=== PATIENT | male | born 1950 | race Caucasian/White ===

== ENCOUNTER 2017-01-14 16:55 | Inpatient (IN) | payer MEDICAID ==
[~2017-01-14] VITALS: Ht 182.9 cm; Wt 84.4 kg
[2017-01-14] MEDS ORDERED: ONDANSETRON HCL/PF 4 MG/2 ML VIAL ONE (17:16)
[2017-01-14] MEDS ORDERED: HYDROMORPHONE 1 MG/1 ML DISP.SYRIN ONE (17:17)
[2017-01-14 17:19] LABS: BASOPHILS # (AUTO) 0.2 /CMM (0.0-0.2); BASOPHILS % (AUTO) 1.6 % (0.0-2.0); EOSINOPHILS % (AUTO) 0.2 % (0.0-6.0); HEMATOCRIT 46 % (39-51); HEMOGLOBIN 14.4 g/dL (13.5-17.5); LYMPHOCYTES # (AUTO) 0.7 /CMM (0.8-4.8); LYMPHOCYTES % (AUTO) 5.6 % (20.0-44.0); MEAN CORPUSCULAR HEMOGLOBIN 21 PG (26.0-33.0); MEAN CORPUSCULAR HGB CONC 31 g/dl (31.0-36.0); MEAN CORPUSCULAR VOLUME 67 fL (80-96); MONOCYTES # (AUTO) 0.4 /CMM (0.1-1.30); MONOCYTES % (AUTO) 3.2 % (2.0-12.0); NEUTROPHILS # (AUTO) 10.9 /CMM (1.8-8.9); NEUTROPHILS % (AUTO) 89.4 % (43.0-81.0); PLATELET COUNT (AUTO) 177 /CMM (150-450); RDW COEFFICIENT OF VARIATION 18.3 (11.5-15.0); RED BLOOD CELL COUNT(AUTO) 6.84 MIL/uL (4.5-6.0); WHITE BLOOD COUNT (AUTO) 12.2 K/uL (4.3-11.0)
--- NOTE | 2017-01-14 17:21 | NUR ---
PT REC'D TO ER C/O ABD PAIN 02/28 THIS IS THE 8TH TIME VSS . IV STARTED 20 G RT AC LABS SENT TO LAB
[2017-01-14] MEDS ORDERED: ONDANSETRON HCL/PF 4 MG/2 ML VIAL IVP ONE (17:30)
[2017-01-14] MEDS ORDERED: IV NS 0.9% 1,000 ML BAG IV ONE (17:30)
[2017-01-14] MEDS ORDERED: HYDROMORPHONE INJ 2 MG/ML DISP.SYRIN IV ONE (17:30)
--- NOTE | 2017-01-14 17:30 | NUR ---
PT SENT TO CT
[2017-01-14 17:32] LABS: CALCIUM, SERUM 9.2 mg/dL (8.5-10.1); CREATININE 1.1 mg/dL (0.6-1.3); POTASSIUM 4.4 mmol/L (3.5-5.1)
[2017-01-14 17:38] LABS: ALBUMIN 4.2 g/dL (3.4-5.0); BILIRUBIN,DIRECT 0.1 mg/dL (0.0-0.2); BILIRUBIN,TOTAL 0.8 mg/dL (0.2-1.0); TOTAL PROTEIN, SERUM 7.6 g/dL (6.4-8.2)
--- NOTE | 2017-01-14 17:50 | NUR ---
PT BACK FROM CT PAIN MED EFFECTIVE 07/01
[2017-01-14 18:10] LABS: BAND % (MANUAL) 5 % (0.0-5.0); LYMPHOCYTES % (MANUAL) 9 % (16-48); MONOCYTES % (MANUAL) 4 % (0-11.0); NEUTROPHILS % (MANUAL) 81 (42-76); REACTIVE LYMPHOCYTES 1 % (0-0)
[2017-01-14] MEDS ORDERED: ASPI81TA2 PO (18:25)
[2017-01-14] MEDS ORDERED: MULT-659 PO (18:25)
[2017-01-14] MEDS ORDERED: IV NS 0.9% 1,000 ML IV ONE (18:30)
--- NOTE | 2017-01-14 18:38 | NUR ---
PT GIVEN 2 ND BAG NS BOLUS PER MD DENIES PAIN AT THIS TIME
--- NOTE | 2017-01-14 18:53 | NUR ---
PATIENT WILL BE ADMITTED INTO ROOM 321-1.
--- NOTE | 2017-01-14 19:10 | NUR ---
GI MD AT BEDSIDE
--- NOTE | 2017-01-14 19:27 | NUR ---
REPORT CALLED TO M/S MISHA SCHERER.
[2017-01-14 19:30] VITALS: BP 156/84
[2017-01-14] MEDS ORDERED: HYDROCODONE/APAP 5/325MG 1 EACH TABLET PO PRN (19:30)
[2017-01-14] MEDS ORDERED: ONDANSETRON HCL/PF 4 MG/2 ML VIAL IVP PRN (19:30)
[2017-01-14] MEDS ORDERED: ACETAMINOPHEN 325 MG TABLET PO PRN (19:30)
[2017-01-14] MEDS ORDERED: ZOLPIDEM TARTRATE 5 MG TABLET PO PRN (19:30)
--- NOTE | 2017-01-14 19:30 | NUR ---
MS/RN OPENING NOTES RECEIVED PATIENT FROM ER, NEW ADMITTED PATIENT IS A 66 YO MALE, A/O X4 ABLE TO VERBALIZE NEEDS, AND CAN AMBULATE WITH SUPERVISION. SKIN INTACT, IV SITE ON RIGHT AC. PATIENT ADMITTED DUE TO COMPLAIN OF ABDOMINAL PAIN, FEVER, N/V. WILL CONTINUE TO MONITOR. LAST PAIN MEDICATION GIVEN AT ER.
[2017-01-14 20:00] VITALS: BP 156/84
[2017-01-14] MEDS: IV D5/ 0.9% NACL 1,000 ML IV PRN (20:28)
[2017-01-14] MEDS ORDERED: HYDROCODONE/APAP 5/325MG 1 EACH TABLET ONE (21:02)
[2017-01-14] MEDS ORDERED: FAMOTIDINE/PF INJ 20 MG/2 ML VIAL IV ONE (21:03)
[2017-01-14] MEDS: FAMOTIDINE/PF INJ 20 MG/2 ML VIAL IV SCH (21:06)
--- NOTE | 2017-01-14 21:06 | NUR ---
MS/RN NOTES PATIENT REPORTED PAIN IN ABDOMEN 5/10. NORCO 5-325 MG PO PRN .
--- NOTE | 2017-01-15 06:31 | NUR ---
ms/rn closing notes Patient awake, alert, oriented x4. able to verbalize needs. No s/s of discomfort. Respiration even and unlabored. Cooperative to care and participated w/ self care. will endorse to am rn regarding cash.
[2017-01-15 06:43] LABS: BASOPHILS % (AUTO) 0.2 % (0.0-2.0); EOSINOPHILS % (AUTO) 0.5 % (0.0-6.0); HEMATOCRIT 37 % (39-51); HEMOGLOBIN 11.8 g/dL (13.5-17.5); LYMPHOCYTES # (AUTO) 0.6 /CMM (0.8-4.8); LYMPHOCYTES % (AUTO) 9.9 % (20.0-44.0); MEAN CORPUSCULAR HEMOGLOBIN 22 PG (26.0-33.0); MEAN CORPUSCULAR HGB CONC 32 g/dl (31.0-36.0); MEAN CORPUSCULAR VOLUME 67 fL (80-96); MONOCYTES # (AUTO) 0.5 /CMM (0.1-1.30); MONOCYTES % (AUTO) 8.4 % (2.0-12.0); NEUTROPHILS # (AUTO) 4.6 /CMM (1.8-8.9); PLATELET COUNT (AUTO) 147 /CMM (150-450); RDW COEFFICIENT OF VARIATION 19.8 (11.5-15.0); RED BLOOD CELL COUNT(AUTO) 5.46 MIL/uL (4.5-6.0); WHITE BLOOD COUNT (AUTO) 5.7 K/uL (4.3-11.0)
--- NOTE | 2017-01-15 07:11 | NUR ---
M/RN OPENING NOTES RECEIVED PATIENT AWAKE IN BED IN NO ACUTE SIGNS OF DISTRESS. A/O X4 AND ABLE TO VOICED OUT NEEDS, NO C/O PAIN OR DISCOMFORTS AT THIS TIME. PT IS NPO AND AMBULATORY. IVF OF D5 NS @ 75ML/HR INFUSING WELL TO LEFT FA HAND G#22, NO SIGNS OF INFILTRATION NOTED. BED IN LOW POSITION AND LOCKED. CALL LIGHT WITHIN REACH. WILL MAINTAIN ALL SAFETY MEASURES AND WILL CONTINUE TO MONITOR PT ACCORDINGLY.
[2017-01-15 07:25] LABS: BAND % (MANUAL) 2 % (0.0-5.0); EOSINOPHILS % (MANUAL) 2 % (0-4); LYMPHOCYTES % (MANUAL) 9 % (16-48); MONOCYTES % (MANUAL) 8 % (0-11.0); NEUTROPHILS % (MANUAL) 79 (42-76)
[2017-01-15 07:33] LABS: CALCIUM, SERUM 7.7 mg/dL (8.5-10.1); CREATININE 0.8 mg/dL (0.6-1.3); MAGNESIUM 1.8 mg/dL (1.8-2.4); PHOSPHORUS 2.4 mg/dL (2.5-4.9); POTASSIUM 4.3 mmol/L (3.5-5.1)
[2017-01-15 08:00] VITALS: BP 134/78
[2017-01-15] MEDS ORDERED: MULTIVIT, IRON, MIN NO. 8, FA 1 TAB PO SCH (09:00)
[2017-01-15] MEDS ORDERED: ASPIRIN 81 MG TAB.CHEW PO SCH (09:00)
[2017-01-15] MEDS: FAMOTIDINE/PF INJ 20 MG/2 ML VIAL IV SCH ×2 (09:23→21:15)
[2017-01-15] MEDS ORDERED: MORPHINE SULFATE INJ 2 MG/ML DISP.SYRIN IV PRN (10:30)
[2017-01-15] MEDS ORDERED: IV NS 0.9% 250 ML IV ONE (10:59)
[2017-01-15] MEDS ORDERED: IOHEXOL-300 100 ML VIAL IV ONE (10:59)
[2017-01-15] MEDS ORDERED: CT SWABBABLE VALVE TRANS SET 1 EA INFUS.SET MC ONE (10:59)
[2017-01-15] MEDS: IV D5/ 0.9% NACL 1,000 ML IV PRN (14:53)
--- NOTE | 2017-01-15 14:54 | NUR ---
RN NOTES MD ORDER TO OBTAIN CONSENT FOR EXPLORATORY LAPAROTOMY, POSSIBLE RIGHT HEMICOLECTOMY, POSSIBLE COLOSTOMY BY DR GALAVIZ. EXPLAINED PROCEDURE TO PT BUT DIDN'T WANT TO SIGN CONSENT UNTIL HE SPEAKS TO DR GALAVIZ. CHARGE NURSE MADE AWARE AND SAID THAT DR GALAVIZ WILL COME LATER TODAY AND WILL TALK TO PT.
[2017-01-15] MEDS ORDERED: Sodium Phosphate 15 MMOL in IV D5W 250 ML IV ONE (15:30)
[2017-01-15 16:00] VITALS: BP 137/84
--- NOTE | 2017-01-15 18:54 | NUR ---
M/RN CLOSING NOTES PATIENT AWAKE IN BED WATCHING TV. A/O X4 AND ABLE TO VOICED OUT NEEDS WITH NO C/O PAIN THROUGHOUT THE DAY. STATED THAT HE HAD LBM SEVERAL TIMES TODAY IN SMALL AMOUNT AND INFORMED MD ABOUT IT. PT REMAINS NPO AND AMBULATORY. IVF OF D5 NS @ 75ML/HR INFUSING WELL TO LEFT FA HAND G#22, NO SIGNS OF INFILTRATION NOTED. BED IN LOW POSITION AND LOCKED. CALL LIGHT WITHIN REACH. ALL SAFETY MEASURES IN PLACE. ALL NEEDS AND CARE ATTENDED WELL. WILL ENDORSED TO [employer]REL RECONDITIONER NURSE FOR MATEO.
--- NOTE | 2017-01-15 19:30 | NUR ---
MS RN OPENING NOTES: PATIENT IN BED, AOX4, ON ROOM AIR, BREATHING EVEN AND UNLABORED. BREATH SOUNDS CLEAR TO AUSCULTATION. BOWEL SOUNDS HYPERACTIVE. APPEARS CALM AND IN NO DISTRESS. DENIES PAIN AT THIS TIME. STATES THAT HE WAS ABLE TO HAVE BM EARLIER TODAY, AND THAT IT WAS SOFT TO LIQUID IN CONSISTENCY. PIV OVER LFA G 22 INTACT NAD INFUSING WELL WITH D5 NS RUNNING AT 75 ML/HR. PROVIDED FOR COMFORT AND SAFETY. MAINTAINED ON NPO. WILL CONT TO MONITOR.
[2017-01-15 20:00] VITALS: BP 132/73
--- NOTE | 2017-01-15 21:15 | NUR ---
RN NOTES: PATIENT'S TEMP IS 99.7. DR NAVARRO WAS CALLED TO ASK IF TYLENOL SUPP CAN BE ORDERED PATIENT IS ON NPO, BUT PER MD, PATIENT IS NPO EXCEPT FOR MEDS. MD AWARE THAT PATIENT WILL POSSIBLY BE HAVING SURGERY WITH DR GALAVIZ TOMORROW, BUT THAT HE HAS NOT CONSENTED YET. DR NAVARRO REITERATED NPO EXCEPT FOR MEDS. NOTED AND CARRIED OUT. TYLENOL 650 MG PO GIVEN, AND COOLING MEASURES INITIATED.
--- NOTE | 2017-01-15 22:20 | NUR ---
RN NOTES: TEMP RECHECKED AT 99.4.
[2017-01-16] VITALS (11 sets, daily range): BP systolic 115–136; BP diastolic 64–86
[2017-01-16] MEDS: IV D5/ 0.9% NACL 1,000 ML IV PRN (05:07)
--- NOTE | 2017-01-16 07:16 | NUR ---
MS RN CLOSING NOTES: PATIENT IN BED, AOX4, ON ROOM AIR, BREATHING EVEN AND UNLABORED. PIV OVER LFA G 22 INTACT AND PATENT, INFUSING WELL WITH D5NS RUNNING AT 75 ML/HR. APPEARS CALM AND IN NO DISTRESS. DENIES PAIN. PATIENT IS NOW AFEBRILE, VSS. DUE MEDS GIVEN. PROVIDED FOR COMFORT AND SAFETY. MAINTAINED ON NPO EXCEPT MEDS. NO ACUTE CHANGE IN CONDITION NOTED THROUGH SHIFT. WILL ENDORSE TO AM RN FOR MATEO.
--- NOTE | 2017-01-16 07:30 | NUR ---
MS RN AM NOTES: PATIENT SITTING IN CHAIR, AOX4, ON ROOM AIR, BREATHING EVEN AND UNLABORED. DENIES ANY PAIN, LFA G 22 WITH D5NS AT 75 ML/HR INFUSING WELL, SITE CLEAR. AFEBRILE, NPO FOR SURGICAL PROCEDURE AT 1030 C/O DR. GALAVIZ. AMBULATORY, CALL LIGHT WITHIN REACH, BED LOW LOCKED, WILL CONT TO MONITOR. PER PATIENT HE WANTS TO TALK TO DR. GALAVIZ PRIOR TO SURGERY BEFORE HE SIGNS CONSENTS.
[2017-01-16 07:39] LABS: CALCIUM, SERUM 7.7 mg/dL (8.5-10.1); CREATININE 0.8 mg/dL (0.6-1.3); PHOSPHORUS 2.6 mg/dL (2.5-4.9); POTASSIUM 3.4 mmol/L (3.5-5.1)
[2017-01-16 07:41] LABS: BASOPHILS % (AUTO) 0.3 % (0.0-2.0); EOSINOPHILS # (AUTO) 0.1 /CMM (0.0-0.7); EOSINOPHILS % (AUTO) 2.3 % (0.0-6.0); HEMATOCRIT 35 % (39-51); HEMOGLOBIN 11.3 g/dL (13.5-17.5); INR 1.04 (0.87-1.13); LYMPHOCYTES # (AUTO) 0.8 /CMM (0.8-4.8); LYMPHOCYTES % (AUTO) 15.7 % (20.0-44.0); MEAN CORPUSCULAR HEMOGLOBIN 22 PG (26.0-33.0); MEAN CORPUSCULAR HGB CONC 32 g/dl (31.0-36.0); MEAN CORPUSCULAR VOLUME 68 fL (80-96); MONOCYTES # (AUTO) 0.5 /CMM (0.1-1.30); MONOCYTES % (AUTO) 9.1 % (2.0-12.0); NEUTROPHILS # (AUTO) 3.8 /CMM (1.8-8.9); NEUTROPHILS % (AUTO) 72.6 % (43.0-81.0); PLATELET COUNT (AUTO) 129 /CMM (150-450); PROTHROMBIN TIME 11.1 SECS (9.5-12.7); RED BLOOD CELL COUNT(AUTO) 5.17 MIL/uL (4.5-6.0); WHITE BLOOD COUNT (AUTO) 5.2 K/uL (4.3-11.0)
[2017-01-16 08:29] LABS: EOSINOPHILS % (MANUAL) 2 % (0-4); LYMPHOCYTES % (MANUAL) 14 % (16-48); MONOCYTES % (MANUAL) 4 % (0-11.0); NEUTROPHILS % (MANUAL) 80 (42-76)
[2017-01-16] MEDS: FAMOTIDINE/PF INJ 20 MG/2 ML VIAL IV SCH ×2 (08:56→21:35)
[2017-01-16] MEDS ORDERED: FENTANYL PF 100MCG/2ML AMPUL ONE (09:01)
[2017-01-16] MEDS ORDERED: ROCURONIUM BROMIDE 50 MG/5 ML ONE ×2 (09:02→10:52)
[2017-01-16] MEDS ORDERED: HYDROMORPHONE INJ 2 MG/ML DISP.SYRIN ONE (09:02)
[2017-01-16] MEDS ORDERED: SUCCINYLCHOLINE CHLORIDE 20 MG/ML VIAL ONE (09:02)
[2017-01-16] MEDS ORDERED: METRONIDAZOLE 500MG/ NS 100ML 100 ML IV ONE (09:14)
--- NOTE | 2017-01-16 09:20 | NUR ---
MS RN NOTE ADMINISTERED DUE MEDS. DR. GALAVIZ AT BEDSIDE EARLIER. CONSENTS FOR PROCEDURE SIGNED.
--- NOTE | 2017-01-16 09:25 | NUR ---
MS RN NOTES PATIENT PICKED UP FOR SCHEDULED SURGERY.
[2017-01-16] MEDS ORDERED: LEVOFLOXACIN 500 MG /D5W 100ML 500 MG in PREMIX 1 EA IV ONE (09:30)
[2017-01-16] MEDS ORDERED: LIDOCAINE 1% INJ 50 ML MDV IJ ONE (09:57)
[2017-01-16] MEDS ORDERED: BUPIVACAINE MPF 0.5% W/EPI INJ 30 ML VIAL ONE (09:57)
[2017-01-16] MEDS: POTASSIUM CL. PREMIX PERIPHER. 50 ML IV SCH ×2 (10:00→11:00)
--- NOTE | 2017-01-16 11:00 | NUR ---
MS RN NOTES POTASSIUM CHLORIDE IV X 2 BAGS NOT GIVEN, PATIENT IS IN SURGERY. SPOKE WITH FIGUEROA AT PHARMACY.
--- NOTE | 2017-01-16 11:50 | NUR ---
MS RN NOTES PATIENT BACK FROM SURGERY, SP/P EX LAP RT HEMICOLECTOMY MILENA TRANSVERSE COLOSTOMY BY DR. CHANTEL GALAVIZ, AAO X 4, ON RA, NOT IN ANY DISTRESS, ABDOMEN WITH CDI DRESSING, VSS TAKEN. STABLE. IVF INFUSING WELL. ALL POST OP ORDERS CARRIED OUT. WILL CONT TO MONITOR.
[2017-01-16] MEDS ORDERED: IV LR 1000 ML 1,000 ML IV PRN (13:00)
[2017-01-16] MEDS ORDERED: HYDROMORPHONE 1 MG/1 ML DISP.SYRIN IV PRN (13:00)
[2017-01-16] MEDS ORDERED: HYDROMORPHONE INJ 2 MG/ML DISP.SYRIN IV PRN (13:00)
[2017-01-16] MEDS: ACETAMINOPHEN 325 MG TABLET PO SCH ×2 (13:12→21:34)
[2017-01-16] MEDS: GABAPENTIN 300 MG CAPSULE PO SCH ×2 (13:12→21:35)
[2017-01-16] MEDS: IBUPROFEN 200 MG TABLET PO SCH ×2 (13:12→21:35)
[2017-01-16] MEDS: IV LR 1000 ML 1,000 ML IV PRN (18:01)
--- NOTE | 2017-01-16 18:45 | NUR ---
MS RN CLOSING NOTES: PATIENT RESTING IN BED, S/P EX LAP RT HEMICOLECTOMY MILENA TRANSVERSE COLOSTOMY BY DR. CHANTEL GALAVIZ, AAO X 4, ON 2L O2 NC, NOT IN ANY DISTRESS, ABDOMEN WITH CDI DRESSING, DENIES ANY PAIN, LFA G 22 FLUSHES WELL RT HAND G18 WITH LR AT 100 ML/HR INFUSING WELL, BOTH SITES CLEAR. AFEBRILE, CLEAR LIQUID DIET, INSTRUCTED TO SIT IN IN CHAIR THIS PM AND AMBULATE IN AM, INCENTIVE SPIROMETER AT BEDSIDE. CALL LIGHT WITHIN REACH, BED LOW LOCKED, ALL NEEDS MET. NO OTHER SIGNIFICANT CHANGE IN CONDITION. WILL ENDORSE TO NEXT SHIFT FOR MATEO.
--- NOTE | 2017-01-16 19:30 | NUR ---
MS/RN OPENING NOTES PT RECEIVED AWAKE, A/OX4. ON 2LPM O2 VIA NC, BREATHING EVEN AND UNLABORED. DENIES SOB. PAIN MEDICATION ALREADY ADMINISTERED AND PT NOTES PAIN TO ABDOMEN 07/29. WALL IN PLACE AND DRAINING WELL. SURGICAL DRESSING TO ABDOMEN C/D/I. IV TO RIGHT HAND RUNNING IVF ORDERED. IV TO LFA PATENT AND INTACT. INCENTIVE SPIROMETER AT BEDSIDE. ENCOURAGED TO USE Q2H AND TO COUGH AND DEEP BREATH WITH PILLOW TO ABDOMEN FOR REINFORCEMENT. BED IN LOW/LOCKED POSITION, CALL LIGHT IN REACH. SIDE RAILS UPX2. WILL CONTINUE TO MONITOR
--- NOTE | 2017-01-17 03:00 | NUR ---
MS/RN NOTES PT ASLEEP, BREATHING EVEN AND UNLABORED. NO S/S OF DISTRESS. WILL CONTINUE TO MONITOR
[2017-01-17] MEDS: IV LR 1000 ML 1,000 ML IV PRN (03:24)
[2017-01-17] MEDS: IBUPROFEN 200 MG TABLET PO SCH ×3 (05:53→20:34)
[2017-01-17] MEDS: ACETAMINOPHEN 325 MG TABLET PO SCH ×3 (05:53→20:34)
[2017-01-17] MEDS: GABAPENTIN 300 MG CAPSULE PO SCH ×3 (05:53→20:34)
[2017-01-17 06:30] LABS: BASOPHILS % (AUTO) 0.1 % (0.0-2.0); EOSINOPHILS % (AUTO) 0.7 % (0.0-6.0); HEMATOCRIT 31 % (39-51); HEMOGLOBIN 9.9 g/dL (13.5-17.5); LYMPHOCYTES # (AUTO) 0.8 /CMM (0.8-4.8); LYMPHOCYTES % (AUTO) 15.5 % (20.0-44.0); MEAN CORPUSCULAR HEMOGLOBIN 22 PG (26.0-33.0); MEAN CORPUSCULAR HGB CONC 33 g/dl (31.0-36.0); MEAN CORPUSCULAR VOLUME 68 fL (80-96); MONOCYTES # (AUTO) 0.5 /CMM (0.1-1.30); MONOCYTES % (AUTO) 9.2 % (2.0-12.0); NEUTROPHILS % (AUTO) 74.5 % (43.0-81.0); PLATELET COUNT (AUTO) 126 /CMM (150-450); RDW COEFFICIENT OF VARIATION 20.2 (11.5-15.0); RED BLOOD CELL COUNT(AUTO) 4.49 MIL/uL (4.5-6.0); WHITE BLOOD COUNT (AUTO) 5.3 K/uL (4.3-11.0)
[2017-01-17 06:45] LABS: CALCIUM, SERUM 7.7 mg/dL (8.5-10.1); CREATININE 0.7 mg/dL (0.6-1.3); POTASSIUM 3.7 mmol/L (3.5-5.1)
--- NOTE | 2017-01-17 07:35 | NUR ---
MS/RN CLOSING NOTES PT AWAKE, A/OX4, RESTING COMFORTABLY IN BED. CURRENTLY ON ROOM AIR, BREATHING EVEN AND UNLABORED, NO APPARENT DISTRESS NOTED. DENIES SOB. PT NOTES PAIN TO ABDOMEN 09/28, OFFERED PAIN MEDICATION BUT MAY WANT ALITTLE LATER. WALL IN PLACE AND DRAINING WELL. SURGICAL DRESSING TO ABDOMEN REMAINS C/D/I. IV TO RIGHT HAND RUNNING IVF ORDERED. IV TO LFA PATENT AND INTACT. PT MOTIVATED TO AMBULATE TODAY DURING SHIFT. BED IN LOW/LOCKED POSITION, CALL LIGHT IN REACH. SIDE RAILS UPX2. ENDORSED TO AM SHIFT MATEO.
[2017-01-17 07:59] LABS: BAND % (MANUAL) 3 % (0.0-5.0); EOSINOPHILS % (MANUAL) 1 % (0-4); LYMPHOCYTES % (MANUAL) 18 % (16-48); MONOCYTES % (MANUAL) 8 % (0-11.0); NEUTROPHILS % (MANUAL) 70 (42-76)
[2017-01-17 08:00] VITALS: BP 128/83
--- NOTE | 2017-01-17 08:00 | NUR ---
RN MS NOTES PT IN BED, AWAKE, ALERT AND ORIENTED, RESPIRATIONS NORMAL AND NOT LABORED, NO COMPLAINT OF PAIN OR ANY DISCOMFORT, IV FLUIDS INFUSING WELL, CALL LIGHT WITHIN REACH, NEEDS ATTENDED.
[2017-01-17] MEDS: FAMOTIDINE/PF INJ 20 MG/2 ML VIAL IV SCH ×2 (09:24→20:34)
[2017-01-17 11:21] LABS: IRON, SERUM 15 ug/dl (50-175); TOTAL IRON BINDING CAPACITY 236 ug/dl (250-450)
--- NOTE | 2017-01-17 13:00 | NUR ---
RN MS NOTES PT ABLE TO AMBULATE ALONG THE HALLWAY WITH STEADY GAIT USING A WALKER, ASSISTED BACK TO BED, PT SEEN BY DR. GALAVIZ, ORDERS MADE AND CARRIED OUT, CALL LIGHT PLACED WITHIN REACH.
[2017-01-17 16:00] VITALS: BP 119/76
--- NOTE | 2017-01-17 18:11 | NUR ---
RN NOTES Patent had a good day. IV fluids D/cD per MDS orders. Marlow Cath to be dc/d in the AM 01/18. Eating a regular diet and tolerating, fluid intake adequate. Ambulated the corridor 4 X steady on his legs. No analgesic requisted. Smiling and enjoys conversing with the nurses.
--- NOTE | 2017-01-17 19:30 | NUR ---
MS/RN NOTES PT RECEIVED AWAKE, SITTING UP IN BED. A/OX4. CURRENTLY ON RA, BREATHING EVEN AND UNLABORED. DENIES SOB. PAIN TOLERABLE AT THIS TIME, DOES NOT WANT PAIN MEDICATION. WALL IN PLACE AND DRAINING WELL. IV TO RIGHT HAND AND LFA PATENT AND INTACT. MENTIONED THAT HE AMBULATED IN THE HALLWAYS, IS PASSING GAS AND HAD A BM TODAY. BED IN LOW/LOCKED POSITION WITH CALL LIGHT IN REACH. SIDE RAILS UPX2. WILL CONTINUE TO MONITOR
[2017-01-17 20:00] VITALS: BP 107/58
[2017-01-17] MEDS ORDERED: MENTHOL/CETYLPYRD (CEPACOL) 1 LOZ LOZENGE PO PRN (22:30)
--- NOTE | 2017-01-18 05:45 | NUR ---
MS/RN NOTES MISCELLANEOUS ORDERED NOTED TO REMOVE WALL IN AM TODAY 01/18/17 REMOVED WALL AT 0545
[2017-01-18] MEDS: IBUPROFEN 200 MG TABLET PO SCH (05:49)
[2017-01-18] MEDS: GABAPENTIN 300 MG CAPSULE PO SCH (05:50)
[2017-01-18] MEDS: ACETAMINOPHEN 325 MG TABLET PO SCH (05:50)
[2017-01-18 06:33] LABS: BASOPHILS % (AUTO) 0.3 % (0.0-2.0); EOSINOPHILS # (AUTO) 0.2 /CMM (0.0-0.7); EOSINOPHILS % (AUTO) 3.8 % (0.0-6.0); HEMATOCRIT 31 % (39-51); LYMPHOCYTES # (AUTO) 1.1 /CMM (0.8-4.8); LYMPHOCYTES % (AUTO) 22.2 % (20.0-44.0); MEAN CORPUSCULAR HEMOGLOBIN 22 PG (26.0-33.0); MEAN CORPUSCULAR HGB CONC 32 g/dl (31.0-36.0); MEAN CORPUSCULAR VOLUME 68 fL (80-96); MONOCYTES # (AUTO) 0.4 /CMM (0.1-1.30); MONOCYTES % (AUTO) 9.1 % (2.0-12.0); NEUTROPHILS # (AUTO) 3.1 /CMM (1.8-8.9); NEUTROPHILS % (AUTO) 64.6 % (43.0-81.0); PLATELET COUNT (AUTO) 131 /CMM (150-450); RDW COEFFICIENT OF VARIATION 20.1 (11.5-15.0); RED BLOOD CELL COUNT(AUTO) 4.54 MIL/uL (4.5-6.0); WHITE BLOOD COUNT (AUTO) 4.8 K/uL (4.3-11.0)
[2017-01-18 06:50] LABS: CALCIUM, SERUM 7.7 mg/dL (8.5-10.1); CREATININE 0.8 mg/dL (0.6-1.3); MAGNESIUM 1.6 mg/dL (1.8-2.4); PHOSPHORUS 3.4 mg/dL (2.5-4.9); POTASSIUM 3.9 mmol/L (3.5-5.1)
--- NOTE | 2017-01-18 07:30 | NUR ---
MS RN AM NOTES: PATIENT IN BED, S/P EX LAP RT HEMICOLECTOMY IMLENA TRANSVERSE COLOSTOMY BY DR. CHANTEL GALAVIZ 01/16/17, CDI DRESSING IN PLACE. AAO X 4, ON 2L O2 NC ON AND OFF, NOT IN ANY DISTRESS, DENIES ANY PAIN, LFA G 22, RT HAND G18 BOTH FLUSHES WELL, BOTH SITES CLEAR. REGULAR DIET, AMBULATES, CALL LIGHT WITHIN REACH, BED LOW LOCKED, WILL CONT TO MONITOR.
[2017-01-18 07:32] LABS: BAND % (MANUAL) 1 % (0.0-5.0); EOSINOPHILS % (MANUAL) 1 % (0-4); LYMPHOCYTES % (MANUAL) 18 % (16-48); MONOCYTES % (MANUAL) 10 % (0-11.0); NEUTROPHILS % (MANUAL) 70 (42-76)
[2017-01-18 08:00] VITALS: BP_SYST 151; BP_SYST 153; BP_DIAS 76; BP_DIAS 87
--- NOTE | 2017-01-18 08:06 | NUR ---
MS/RN NOTES PT AWAKE, SITTING UP IN BED. RESTING COMFORTABLY. APPEARS COMFORTABLE. CURRENTLY ON RA, BREATHING EVEN AND UNLABORED. NO S/S OF DISTRESS NOTED. NO COMPLAINTS OF PAIN. ABDOMINAL DRESSING C/D/I. IV TO RIGHT HAND AND LFA PATENT AND INTACT. MADE PT COMFORTABLE THROUGHOUT SHIFT. ALL NEEDS MET AND ATTENDED. NO CHANGES OVERNIGHT. ENDORSED TO AM SHIFT MATEO.
[2017-01-18] MEDS: FAMOTIDINE/PF INJ 20 MG/2 ML VIAL IV SCH (08:53)
--- NOTE | 2017-01-18 09:30 | NUR ---
MS RN NOTES ADMINISTERED DUE MEDS.
[2017-01-18] MEDS ORDERED: CEPH-570 PO (11:22)
[2017-01-18] MEDS ORDERED: Magnesium 1GM/D5W 100ML PREMIX 100 ML IV SCH (11:30)
--- NOTE | 2017-01-18 12:00 | NUR ---
MS RN NOTES PATIENT REFUSED MAGNESIUM IV DESPITE EXPLAINING THE BENEFITS. STATED, I WILL JUST EAT FOODS RICH IN MAGNESIUM.
[2017-01-18 12:34] VITALS: BP 145/85
--- NOTE | 2017-01-18 12:34 | NUR ---
MS RN NOTES DISCHARGE PATIENT TO HOME TODAY PER MD AND SURGEON IN STABLE CONDITION. PROVIDED DC INSTRUCTIONS, MED RECON LIST/PRESCRIPTION AND HEALTH TEACHINGS. PATIENT TO FOLLOW UP WITH PCP AND DR. GALAVIZ IN 1-2 WEEKS , WILL MAKE OWN APPOINTMENT. IV ACCESS TO RT HAND AND LEFT FA REMOVED. CATH TIP COMPLETE, NO BLEEDING, DRESSING IN PLACE. ALL BELONGINGS CHECKED AND RETURNED. ALL PAPERWORKS SIGNED. ACCOMPANIED BY ELDA COLEMAN TO [facility] WILL TRANSPORTED TO HOME VIA PRIVATE CAR BY FAMILY.
== END 2017-01-18 12:45 | disposition home or self-care (01) | DRG 221 ==
LOC: ER 16:57 → MED 19:13
PROVIDERS: ADMIT Nurse Practitioner Acute Care; ATTEND Nurse Practitioner Acute Care
PROC: 0DNS0ZZ (ICD-10-PCS; principal; 2017-01-16 10:00)
PROC: 0D1L0Z4 Bypass Transverse Colon to Cutaneous, Open Approach (ICD-10-PCS; principal; 2017-01-16 10:00)
PROC: 0DTF0ZZ Resection of Right Large Intestine, Open Approach (ICD-10-PCS; principal; 2017-01-16 10:00)
DX: C18.2 Malignant neoplasm of ascending colon (principal); K56.60 Unspecified intestinal obstruction; D72.829 Elevated white blood cell count, unspecified; R59.0 Localized enlarged lymph nodes; R10.9 Unspecified abdominal pain
CPT/HCPCS: 36415; 71010-TC; 71250-TC; 80048-TC; 80061-TC; 80076-TC; 82272-TC; 82378; 83540-TC; 83690-TC; 83735-TC; 84100-TC; 85025-TC; 85610-TC; 85730-TC; 86301; 86850-TC; 87081-TC; 88305-TC; 88309-TC; 93307-TC; A4216; A4606; A6209; A6402; A9563; J0330; J1100; J1170; J1885; J1956; J2405; J2704; J2710; J3010; J3490; J7030; J7042; J7050; J7060; J7120; Q9967; Z7610

== ENCOUNTER 2018-10-16 08:41 | Emergency (ER) | payer OTHER ==
[~2018-10-16] VITALS: Ht 182.9 cm; Wt 79.4 kg
[~2018-10-16 08:41] MED LIST: ASPI-1169 PO; CEPH-570 PO; MULT-659 PO
[2018-10-16 08:48] VITALS: BP 125/79
--- NOTE | 2018-10-16 08:50 | NUR ---
urine collected and sent to lab.
[2018-10-16 09:10] LABS: APPEARANCE,URINE Clear (CLEAR); BILIRUBIN,URINE Negative (NEGATIVE); BLOOD, URINE Trace-lysed Ery/uL (NEGATIVE); COLOR,URINE Yellow (YELLOW); KETONES,URINE Negative (NEGATIVE); LEUKOCYTE ESTERASE ,URINE Negative (NEGATIVE); NITRITE, URINE Negative (NEGATIVE); PH,URINE 5.5 (5.0-8.0); PROTEIN,URINE Negative (NEGATIVE); UGLUCOSE Negative (NEGATIVE); UROBILINOGEN,URINE 0.2 EU/dL (0.2)
[2018-10-16 09:11] LABS: BACTERIA,URINE Rare /HPF (None Seen); SQUAMOUS EPITHELIAL CELL,UR Rare /HPF (None Seen); WBC,URINE 0-2 /HPF (0-3)
[2018-10-16] MEDS ORDERED: CEFTRIAXONE 500 MG VIAL ONE (09:18)
[2018-10-16] MEDS ORDERED: AZITHROMYCIN 250 MG TABLET ONE (09:19)
[2018-10-16] MEDS ORDERED: LIDOCAINE /MPF 1% VIAL 5 ML VIAL ONE ×2 (09:19→09:38)
[2018-10-16] MEDS: CEFTRIAXONE 500 MG VIAL IM ONE (09:46)
[2018-10-16] MEDS: AZITHROMYCIN 250 MG TABLET PO ONE (09:48)
== END 2018-10-16 09:51 | disposition home or self-care (01) ==
LOC: ER 08:41
DX: N48.89 Other specified disorders of penis (principal); Z98.890 Other specified postprocedural states; Z79.82 Long term (current) use of aspirin
CPT/HCPCS: 81001; 87086; 87491; 87591; 96372; 99283; J0696; J3490 ×2; 81000-TC

== ENCOUNTER 2022-01-29 11:46 | Emergency (ER) | payer OTHER ==
[~2022-01-29] VITALS: Ht 182.9 cm; Wt 70.3 kg
--- NOTE | 2022-01-29 12:04 | NUR ---
DR BRIDGES AT BEDSIDE W/ PT.
--- NOTE | 2022-01-29 12:12 | NUR ---
PT TAKEN TO RADIOLOGY FOR CT
--- NOTE | 2022-01-29 12:31 | NUR ---
PT RETURNED FROM RADIOLOGY
[2022-01-29 12:43] LABS: BASOPHILS % (AUTO) 0.5 % (0.0-2.0); EOSINOPHILS % (AUTO) 1.9 % (0.0-6.0); HEMATOCRIT 42 % (39-51); HEMOGLOBIN 14.1 g/dL (13.5-17.5); LYMPHOCYTES % (AUTO) 17.8 % (20.0-44.0); MEAN CORPUSCULAR HGB CONC 34 g/dl (31.0-36.0); MEAN CORPUSCULAR VOLUME 91 fL (80-96); MONOCYTES # (AUTO) 0.5 K/uL (0.1-1.30); NEUTROPHILS # (AUTO) 4.1 K/uL (1.8-8.9); NEUTROPHILS % (AUTO) 71.8 % (43.0-81.0); PLATELET COUNT (AUTO) 156 K/uL (150-450); RED BLOOD CELL COUNT(AUTO) 4.62 MIL/uL (4.5-6.0); WHITE BLOOD COUNT (AUTO) 5.7 K/uL (4.3-11.0)
[2022-01-29 12:50] LABS: ALBUMIN 3.5 g/dL (3.4-5.0); BILIRUBIN,DIRECT 0.1 mg/dL (0.0-0.2); BILIRUBIN,TOTAL 0.5 mg/dL (0.2-1.0); CALCIUM, SERUM 8.7 mg/dL (8.5-10.1); CREATININE 0.8 mg/dL (0.6-1.3); POTASSIUM 3.9 mmol/L (3.5-5.1); TOTAL PROTEIN, SERUM 5.9 g/dL (6.4-8.2)
--- NOTE | 2022-01-29 13:09 | NUR ---
Patient discharged to home in stable condition. Written and verbal after care instructions given. Patient verbalizes understanding of instruction.
[2022-01-29 13:19] VITALS: BP 133/85
== END 2022-01-29 13:10 | disposition home or self-care (01) ==
LOC: ER 11:55
DX: R10.9 Unspecified abdominal pain (principal); Z79.899 Other long term (current) drug therapy
CPT/HCPCS: 99284; 74176; 85025; 80048; 83690; 80076; 36415; J7042